=== PATIENT | female | born 1995 | race Native Hawaiian/Other Pacific Islander ===

== ENCOUNTER 2017-03-22 21:11 | Emergency (ER) | payer OTHER ==
[~2017-03-22] VITALS: Ht 160 cm; Wt 130.2 kg
[2017-03-22 21:55] LABS: PLATELET COUNT 319 K/uL (152-353)
== END 2017-03-22 22:46 | disposition home or self-care (01) ==
LOC: ED 21:11
DX: J06.9 Acute upper respiratory infection, unspecified (principal)
CPT/HCPCS: 85027; 87081; 87804; 87880; 96372; 99283; J0696